=== PATIENT | female | born 1990 | race Caucasian/White ===

== ENCOUNTER 2017-05-05 11:29 | Emergency (ER) | payer MEDICAID ==
[~2017-05-05] VITALS: Ht 157.5 cm; Wt 78.6 kg
[~2017-05-05 11:29] MED LIST: ALBU18HF2 IH; ALBU8.5H8 IH; AMOX500C2 PO
[2017-05-05] MEDS ORDERED: LORazepam 1 MG tablet PO ONE (12:40)
[2017-05-05] MEDS ORDERED: acetaminophen 325mg tablet PO ONE (12:50)
[2017-05-05] MEDS ORDERED: dicloxacillin 500 MG capsule PO SCH (12:50)
[2017-05-05] MEDS ORDERED: DICL500C10 PO (13:06)
[2017-05-05 13:17] VITALS: BP 133/87
== END 2017-05-05 13:18 | disposition home or self-care (01) ==
LOC: ER 11:29
DX: N61.0 Mastitis without abscess (principal); J45.909 Unspecified asthma, uncomplicated; Z88.2 Allergy status to sulfonamides
CPT/HCPCS: 99283

== ENCOUNTER 2022-02-15 20:25 | Emergency (ER) | payer MEDICAID ==
[~2022-02-15] VITALS: Ht 154.9 cm; Wt 81.0 kg
[~2022-02-15 20:25] MED LIST changes: +ALBU8.5H17 IH; -ALBU8.5H8 IH; +DICL500C10 PO
[2022-02-15 20:42] VITALS: BP 123/78
[2022-02-15] MEDS ORDERED: triamcinolone acet 0.1% cream 15gm TP STA (22:34)
[2022-02-15] MEDS ORDERED: hydrOXYzine 25 MG tablet PO ONE (22:35)
[2022-02-15] MEDS ORDERED: HYDR-3686 PO ×3 (22:40→22:41)
[2022-02-15] MEDS ORDERED: TRIA15CR61 TOP ×3 (22:40→22:41)
== END 2022-02-15 23:02 | disposition home or self-care (01) ==
LOC: ER 20:25
DX: L23.9 Allergic contact dermatitis, unspecified cause (principal); J45.909 Unspecified asthma, uncomplicated; Z88.2 Allergy status to sulfonamides; Z79.899 Other long term (current) drug therapy; Z79.2 Long term (current) use of antibiotics
CPT/HCPCS: 99283; Q0177

== ENCOUNTER 2023-06-20 16:22 | Emergency (ER) | payer MEDICAID ==
[~2023-06-20] VITALS: Ht 154.9 cm; Wt 78.9 kg
[~2023-06-20 16:22] MED LIST changes: +HYDR-3686 PO; +TRIA15CR61 TOP
[2023-06-20 17:14] LABS: BILIRUBIN,URINE NEGATIVE (Neg); CLARITY,URINE CLOUDY (Clear); COLOR,URINE YELLOW (Yellow); GLUCOSE, URINE NEGATIVE (Neg); KETONES,URINE NEGATIVE (Neg); LEUKOCYTE ESTERASE ,URINE TRACE (Neg); NITRITES, URINE NEGATIVE (Neg); OCCULT BLOOD,URINE TRACE-INTACT (Neg); PH,URINE 5.5 (4.8-8.0); PROTEIN,URINE NEGATIVE (Neg); URINE HCG NEGATIVE (NEG); UROBILINOGEN,URINE 0.2 E.U/dL (0.2-1.0)
[2023-06-20 17:15] LABS: UA COLLECTION TYPE CLN CATCH MIDSTREAM
[2023-06-20 17:22] LABS: MUCUS STRANDS MANY /LPF (Neg); SQUAMOUS EPITHELIAL CELL,UR MANY /LPF (FEW)
[2023-06-20 17:24] LABS: BACTERIA,URINE 1+ /HPF (Neg); RBC,URINE 0-2 /HPF (0-2)
[2023-06-20 17:25] LABS: COARSE GRANULAR CAST 0-3 /LPF (NEGATIVE)
[2023-06-20 18:45] LABS: HEMOGLOBIN 13.9 g/dl (12.0-16.0); MEAN PLATELET VOLUME 8.5 FL (7.4-10.4); PLATELET COUNT 308 X10'3 (140-440); RED CELL DISTRIBUTION WIDTH 13.1 % (11.5-14.5)
[2023-06-20 18:46] LABS: BASOPHILS # (AUTO) 0.1 X10'3 (0-0.2); EOSINOPHILS # (AUTO) 0.1 X10'3 (0-0.9); EOSINOPHILS % (AUTO) 0.8 % (0-6); HEMATOCRIT 40.9 % (35.0-45.0); LYMPHOCYTES # (AUTO) 2.8 X10'3 (1.1-4.8); LYMPHOCYTES % (AUTO) 22.2 % (21-51); MEAN CORPUSCULAR HEMOGLOBIN 29.9 PG (27.0-31.0); MONOCYTES # (AUTO) 0.4 X10'3 (0-0.9); MONOCYTES % (AUTO) 2.9 % (2-12); NEUTROPHILS # (AUTO) 9.1 X10'3 (1.8-7.7); NEUTROPHILS % (AUTO) 73.1 % (42-75); RED BLOOD COUNT 4.65 X10'6 (4.20-5.60); WHITE BLOOD COUNT 12.5 X10'3 (4.5-11.0)
[2023-06-20 19:01] LABS: ALBUMIN 3.9 G/DL (3.4-5.0); ALKALINE PHOSPHATASE 44 IU/L (46-116); ANION GAP 13 (8-16); ASPARTATE AMINO TRANSFERASE 11 U/L (10-37); BILIRUBIN,TOTAL 0.5 MG/DL (0.1-1.0); BLOOD UREA NITROGEN 8 MG/DL (7-18); BUN/CREATININE RATIO 10.5 (10.0-20.0); CALCIUM 8.8 MG/DL (8.5-10.1); CHLORIDE 104 MMOL/L (99-107); CREATININE 0.76 MG/DL (0.40-0.90); GLUCOSE 113 MG/DL (70-104); LIPASE 20 U/L (16-77); POTASSIUM 3.4 MMOL/L (3.5-5.1); SODIUM 144 MMOL/L (135-145); TOTAL CARBON DIOXIDE 26.7 MMOL/L (24-32); TOTAL PROTEIN 7.9 G/DL (6.4-8.2); eCRCL 78 ML/MIN; eGFR 87 ML/MIN
[2023-06-20 19:38] LABS: ALANINE AMINOTRANSFERASE < 6 U/L (12-78)
[2023-06-20] MEDS ORDERED: CEPH250T PO (19:42)
[2023-06-20 20:09] VITALS: BP 121/85; PULSE 85; RESP 16; TEMP 98.4; O2SAT 97
== END 2023-06-20 20:13 | disposition home or self-care (01) ==
LOC: ER 16:22
DX: K43.9 Ventral hernia without obstruction or gangrene (principal); N39.0 Urinary tract infection, site not specified; J45.909 Unspecified asthma, uncomplicated; Z88.2 Allergy status to sulfonamides; Z79.899 Other long term (current) drug therapy; Z79.2 Long term (current) use of antibiotics
CPT/HCPCS: 36415; 80053; 81001; 81025; 83690; 85025; 99283; A6449